=== PATIENT | female | born 1960 | race Caucasian/White ===

== ENCOUNTER 2021-08-27 18:12 | Emergency (ER) | payer OTHER, SELFPAY ==
--- NOTE | ~2021-08-27 | XR_ITS ---
EXAMINATION: XR HAND, LEFT CLINICAL INFORMATION: Dog bite COMPARISON: None TECHNIQUE: PA, lateral, and oblique views of the left hand. FINDINGS: No evidence of bony violation. No acute fracture or dislocation. No radiopaque foreign body is visualized. XR/XR hand LT 2V IMPRESSION: No acute bony finding.
[2021-08-27 19:03] VITALS: BP 172/103; PULSE 77; RESP 16; TEMP 37.1; O2SAT 99; BMI 23.1
--- NOTE | 2021-08-27 20:25 | ED_ITS ---
HPI - Animal Bite General Chief Complaint: Animal Bite Stated Complaint: DOG BITE Time Seen by Provider: 08/27/21 20:25 Source: patient Mode of arrival: ambulatory Limitations: no limitations History of Present Illness HPI narrative: 60-year-old female is here today after being bit by her own dog. Patient was bit her left hand, thumb. Small puncture wounds noted. Patient reports that her dog is up today with rabies shots. Patient had tetanus booster in 2014. Patient denies any other symptoms. MD complaint: animal bite Onset (ago): hour(s) Animal: dog Description of animal: household pet Mechanism: bite Location: other (Hand) Location - Extremities: left: hand Pain description: dull Related Data Previous Rx's Medication Instructions Recorded amoxicillin 875 mg-potassium 1 tab PO BID 10 Days #20 tab 08/27/21 clavulanate 125 mg tablet (Augmentin) Allergies Allergy/AdvReac Type Severity Reaction Status Date / Time No Known Allergies Allergy Unverified 08/14/20 16:58 [No Known Allergies*] Review of Systems Review of Systems: Constitutional : No Weight loss, No Fever, No Chills, No Night Sweats, No Fatigue, No Malaise ENT/Mouth : No Hearing loss, No Ear Pain, No Nasal Congestion, No Sinus Pain, No Hoarseness, No sore throat, No Rhinorrhea, No Swallowing Difficulty Eyes: No Eye Pain, No Swelling, No Redness, No Foreign Body, No Discharge, No Vision Changes Cardiovascular : No Chest Pain, No SOB, No Dyspnea on Exertion, No Orthopnea, No Edema, No Palpitations Respiratory : No Cough, No Sputum, No Wheezing, No Smoke Exposure, No Dyspnea Gastrointestinal : No Nausea, No Vomiting, No Diarrhea, No Constipation, No abdominal Pain, No Hematochezia, No Melena Genitourinary : no irregular bleeding, No Dysuria, No Urinary Frequency, No Hematuria, No Urinary Incontinence, No Urgency, No Flank Pain, No Urinary Flow Changes, No Hesitancy Musculoskeletal : No joint pain, No Myalgias, No Joint Swelling Skin : No Skin Lesions, No rash Yes all other systems are reviewed and are negative [facility] Social History Social History Advance Directives: No Advance Directives Information Provided: No Patient : No Physical Exam Vital Signs: Vital Signs: Last Vital Signs Temp 98.7 F 08/27/21 19:03 Pulse 77 08/27/21 19:03 Resp 16 08/27/21 19:03 BP 172/103 H 08/27/21 19:03 Pulse Ox 99 08/27/21 19:03 Body Mass Index 23.1 Const: General: healthy appearing, no acute distress and well developed Nutritional Appearance: well nourished Orientation/consciousness: patient oriented x3 Neck: Neck: Yes normal visual inspection, Yes full ROM and Yes trachea midline Thyroid: Thyroid normal Resp: Auscultation: clear to auscultation bilaterally Cardio: Rate: regular rate Rhythm: regular rhythm GI: Inspection: Yes normal to inspection and No distended Palpation (GI): No hepatosplenomegaly present Auscultation: normal bowel sounds Skin: General skin exam: elasticity normal, turgor normal and dry skin Wounds: wounds noted (Right thumb bite) Neuro: General: patient oriented x3 Extrem: General: Yes full ROM and Yes capillary refill normal Right upper extremity: full ROM, normal capillary refill and Extremity exam: right hand (Right thumb bite) Course Course Course Narrative: 60-year-old female is here today after sustaining a bite in her left hand. Patient's own dog who is up today with rabies shots bit her on her left thumb. Small puncture wounds. Will get x-ray to make sure there is no injury to the bone or the tendons. Patient had last tetanus vaccine in 2014 will give her booster. First dose of Augmentin will be given to patient Reevaluation(s) Reevaluation #1: X-ray negative for any abnormal findings. Will send patient home on p.o. Augmentin, 1st dose given in the ER. Tetanus updated today [facility] - Animal Bite Imaging Data Hand x-ray: Attestation: I personally reviewed and interpreted this imaging study as follows: Radiologist's impression: FINDINGS: No evidence of bony violation. No acute fracture or dislocation. No radiopaque foreign body is visualized.? Discharge Plan Discharge Clinical Impression: Dog bite Qualifiers: Encounter type: initial encounter Qualified Code(s): W54.0XXA - Bitten by dog, initial encounter Patient Disposition: Home, Self-Care Instructions: Animal Bite (ED) Additional Instructions: You were seen here today after sustaining a dog bite. Please make sure that you keep the area clean. First dose of antibiotic was given to you in the emergency department. Your tetanus was updated today. Please finish all the antibiotics. You may return to emergency department if your symptoms will get worse or if you experience any additional concerning symptoms. You may follow-up with your primary care doctor to check your wound. Prescriptions: New amoxicillin-pot clavulanate [Augmentin] 875-125 mg tablet 1 tab PO BID 10 Days Qty: 20 RF: 0
[2021-08-27] MEDS: Diphth,Pertus(ACell),Tet Adult 0.5 ML SYRINGE IM (20:41)
[2021-08-27] MEDS: Amoxicillin/Potassium Clav 875 MG TABLET PO (20:41)
== END 2021-08-27 20:57 | disposition home or self-care (01) ==
PROVIDERS: Emergency Provider Internal Medicine; PCP Internal Medicine
DX: S60.372A Other superficial bite of left thumb, initial encounter (principal); S60.312A Abrasion of left thumb, initial encounter; M79.645 Pain in left finger(s); W54.0XXA Bitten by dog, initial encounter; Y93.9 Activity, unspecified; Y92.009 Unspecified place in unspecified non-institutional (private) residence as the place of occurrence of the external cause; Y99.9 Unspecified external cause status
CPT/HCPCS: 73120; 90471; 90715; 99284

== ENCOUNTER 2024-06-11 18:58 | Emergency (ER) | payer OTHER, SELFPAY ==
--- NOTE | ~2024-06-11 | XR_ITS ---
Examination: XR foot LT min 3V, XR ankle LT min 3V Indication: Pain. Injury. Comparison: No pertinent prior studies are currently available for comparison. Technique: 2 views left ankle with 3 views of the left foot including a lateral view encompassing the foot and ankle Findings: There is significant soft tissue swelling along the dorsal aspect of the midfoot. Underlying bony structures are intact. I do not appreciate any acute fracture or dislocation. Mild degenerative changes at the first MTP joint. No radiopaque foreign body or soft tissue gas. XR/XR foot LT min 3V Impression: Significant soft tissue swelling along the dorsal aspect of the midfoot. I do not appreciate any acute underlying fracture or dislocation.
--- NOTE | ~2024-06-11 | XR_ITS ---
Examination: XR foot LT min 3V, XR ankle LT min 3V Indication: Pain. Injury. Comparison: No pertinent prior studies are currently available for comparison. Technique: 2 views left ankle with 3 views of the left foot including a lateral view encompassing the foot and ankle Findings: There is significant soft tissue swelling along the dorsal aspect of the midfoot. Underlying bony structures are intact. I do not appreciate any acute fracture or dislocation. Mild degenerative changes at the first MTP joint. No radiopaque foreign body or soft tissue gas. XR/XR ankle LT min 3V Impression: Significant soft tissue swelling along the dorsal aspect of the midfoot. I do not appreciate any acute underlying fracture or dislocation.
[2024-06-11 19:30] VITALS: BP 178/100; PULSE 78; RESP 18; TEMP 36.5; O2SAT 98; BMI 24.5
--- NOTE | 2024-06-11 19:30 | ED_ITS ---
HPI - General Adult General Chief complaint: Extremity Injury, Lower Stated complaint: L foot pain, injured at home Time Seen by Provider: 06/11/24 22:57 Source: patient Mode of arrival: ambulatory Limitations: no limitations History of Present Illness HPI narrative: Patient is a 63 old female who presents emergency department for evaluation of traumatic pain to her left foot. Reports that she was moving a bookcase when it accidentally fell landing on her left foot. She was wearing sneakers at the time that it happened. She reports significant bruising and swelling, this prompted her evaluation in the emergency department. She does state that she has been able to bear weight and ambulate without worsening of pain or difficulty. Denies any numbness tingling or cold sensation to the foot. Denies any prior pain /injury. Related Data Home Medications ?Medication ?Instructions ?Recorded ?Confirmed No Known Home Meds 01/29/22 03/16/22 Allergies Allergy/AdvReac Type Severity Reaction Status Date / Time No Known Allergies Allergy Verified 06/11/24 19:32 [No Known Allergies*] Review of Systems Review of Systems: Yes all other systems are reviewed and are negative PMFSH Past Medical History Attestation statement: The following information was validated with the patient. 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 Housing: House Patient Tobacco Use Status: Never used Tobacco e-Cigarette/Vaping Use: Never Used Advance Directives: No Advance Directives Information Provided: Yes Do you have a plan to hurt others: No Plan service: No Current occupational status: employed Cognitive needs: No Hearing needs: No Vision needs: Yes Physical Exam ED Vital Signs: Vital Signs - 24 hr 06/11/24 19:30 06/11/24 22:45 06/11/24 23:42 Temperature 97.7 F 97.3 F 98.7 F Pulse Rate 78 79 82 Respiratory Rate 18 16 18 Blood Pressure 178/100 H 194/109 H 188/107 H Pulse Oximetry 98 99 97 Oxygen Delivery Method Room Air Room Air Room Air 06/11/24 23:50 Temperature 98.7 F Pulse Rate 82 Respiratory Rate 18 Blood Pressure 188/107 H Pulse Oximetry 97 Oxygen Delivery Method Room Air BMI result Body Mass Index 24.5 Appearance: Alert.?Oriented to person, place and time. No acute distress.?Normal affect. Eyes: Pupils equal, round and reactive to light.? ENT: Pharynx normal.?? Neck: Normal inspection.? Neck supple.?? CVS: Heart sounds normal. Normal heart rate and rhythm.? Pulses normal.?? Respiratory: No respiratory distress.? Lung sounds clear to auscultation bilaterally??? Skin: Skin warm and dry.? Normal skin color.? Normal skin turgor.?? Extremities: Localized swelling and ecchymosis to the left mid foot. 2+ DP/PT pulse bilaterally. Full range of motion to the digits and left ankle. No calf tenderness Neuro: Moves all extremities spontaneously. Sensation intact bilaterally. Ambulates with normal steady gait. Course Course Course Narrative: RME performed by Marie Encarnacion PA-C. Patient is a 63 year old assigned f emale at presenting to the emergency department with left foot pain / swelling. Patient states that she dropped a book case on her left foot. Detailed physical exam and review of systems are deferred to the team primary care physician. Imaging ordered. Patient placed back in the waiting room pending room availability and results. Medical Decision Making Medical Decision Making MDM Narrative: Patient is a 63 emergency department for evaluation of traumatic left fallopian as per HPI. Has obvious ecchymosis and localized swelling on examination, no obvious deformity. Extremity is neurovascularly intact distally. XR was obtained to exclude fracture dislocation, no evidence of either on x-ray. There is soft tissue swelling, which is obvious on examination, concerning at this time for contusion/sprain. Discussed conservative treatment including rest, ice, compression, elevation, OTC analgesics. She is noted to have elevated blood pressure without diagnosis of hypertension as by her account. She states ?it is always elevated when about the doctors are in the emergency department?. She admits that she checks it at home and she does not have elevated blood pressure readings. She is currently asymptomatic. I suspect she is less likely to have any evidence of acute end-organ dysfunction, she declines serum labs or further evaluation for her blood pressure. Reports that she will follow-up with her primary care provider. Differential Diagnosis Differential Diagnoses: The differential diagnosis associated with the presentation includes (See narrative above) Independent Interpretation I performed an independent interpretation of an: Plain X-Ray (See narrative above) Radiology Impression Discussion of test interpretation with radiology: I have reviewed the radiologist's reading. Radiologist Impression: XR/XR ankle LT min 3V Impression: Significant soft tissue swelling along the dorsal aspect of the midfoot. I do not appreciate any acute underlying fracture or dislocation. Independent Historian Clinical information obtained from an independent historian. History obtained from or confirmed by: Spouse Prescription Management I considered prescription management with: Pain Medication (See narrative above) Discharge Plan Discharge Clinical Impression: Contusion of foot, left Patient Disposition: Home, Self-Care Instructions: Foot Contusion (ED), R.I.C.E. Treatment (ED) Additional Instructions: You may apply weight to the foot as tolerated. You can take ibuprofen 200 mg, 3 tablets (600mg) every 6-8 hours as needed for pain, in addition to Tylenol 500 mg, 2 tablets (1,000mg) every 4-6 hours as needed for pain, but not to exceed 3 doses daily (3,000mg).? Follow instructions regarding rest, ice, elevation. Follow-up with primary care provider for persistent symptoms. You may return back to emergency department any new or worsening symptoms or concerns. Prescriptions: No Action No Known Home Meds Referrals: Elva Barker MD [Primary Care Provider] - Interventions: ED Discharge Assessment Last Done: 06/11/24 23:50 Discharge Date/Time: 06/11/24 23:51 Print Language: Bel[place]ian
[2024-06-11 22:45] VITALS: BP 194/109; PULSE 79; RESP 16; TEMP 36.3; O2SAT 99
[2024-06-11 23:42] VITALS: BP 188/107; PULSE 82; RESP 18; TEMP 37.1; O2SAT 97
[2024-06-11 23:50] VITALS: BP 188/107; PULSE 82; RESP 18; TEMP 37.1; O2SAT 97
--- NOTE | 2024-06-11 23:50 | PC.NURSE ---
Annalisa GUALLPA aware of pt blood pressure at time of discharge. pt states she has white coat syndrome.
== END 2024-06-11 23:51 | disposition home or self-care (01) ==
PROVIDERS: Emergency Provider Emergency Medicine; PCP Internal Medicine
DX: S90.32XA Contusion of left foot, initial encounter (principal); M79.672 Pain in left foot; M25.572 Pain in left ankle and joints of left foot; X58.XXXA Exposure to other specified factors, initial encounter; W01.0XXA Fall on same level from slipping, tripping and stumbling without subsequent striking against object, initial encounter; Y93.E8 Activity, other personal hygiene; Y92.89 Other specified places as the place of occurrence of the external cause; Y99.8 Other external cause status
CPT/HCPCS: 73610; 73630; 99283